=== PATIENT | male | born 1945 | race African-American/Black ===

== ENCOUNTER 2016-06-30 15:10 | Emergency (ER) | payer MEDICAID, OTHER ==
[~2016-06-30] VITALS: Ht 188 cm; Wt 95.3 kg
[~2016-06-30 15:10] MED LIST: IBUP-44 PO
[2016-06-30 15:39] VITALS: BP 162/92
--- NOTE | 2016-06-30 19:01 | NUR ---
PATIENT TO BED 6.
--- NOTE | 2016-06-30 19:37 | NUR ---
71Y/F PATIENT PRESENTS TO ED WITH C/O HEMATURIA X 1 DAY . PT STATES HAVING HEMATURIA X 1 DAY, NO PAIN, HX. OF HTN BUT DID NOT TREAT. DENIES N/V/D; SKIN IS PINK/WARM/DRY; AAOX4 WITH EVEN AND STEADY GAIT; LUNGS CLEAR BL; HR EVEN AND REGULAR; PT DENIES ANY FEVER, CP, SOB, OR COUGH AT THIS TIME; PATIENT STATES PAIN OF 0/10 AT THIS TIME; VSS; PATIENT POSITIONED FOR COMFORT; HOB ELEVATED; BEDRAILS UP X2; BED DOWN. ER MD MADE AWARE OF PT STATUS.
--- NOTE | 2016-06-30 19:38 | NUR ---
Dr. Salmon evaluating patient at bedside.
[2016-06-30] MEDS: cloNIDine 0.1 MG TAB PO ONE (20:04)
[2016-06-30 20:29] LABS: APPEARANCE,URINE SL CLOUDY (CLEAR); BLOOD, URINE 3+ (NEGATIVE); COLOR,URINE BROWN (YELLOW); LEUKOCYTE ESTERASE ,URINE NEGATIVE (NEGATIVE); NITRITE, URINE NEGATIVE (NEGATIVE); PROTEIN,URINE 2+ (NEGATIVE); UGLUCOSE NEGATIVE (NEGATIVE); UROBILINOGEN,URINE 0.2 EU/dL (0.2 - 1)
[2016-06-30 20:31] LABS: BILIRUBIN,URINE NEGATIVE (NEGATIVE)
[2016-06-30 20:32] LABS: BACTERIA,URINE 1+ /HPF (None Seen); MUCUS,URINE 1+ /LPF (None Seen); RBC,URINE TOO NUMEROUS TO COUN /HPF (0-5); SQUAMOUS EPITHELIAL CELL,UR None Seen /LPF (0-3 (FEW)); WBC,URINE 0-3 /HPF (0-5)
--- NOTE | 2016-06-30 20:55 | NUR ---
Patient discharged with v/s stable. Written and verbal after care instructions given and explained. Patient alert, oriented and verbalized understanding of instructions. Ambulatory with steady gait. All questions addressed prior to discharge. ID band removed. Patient advised to follow up with PMD. Rx of LISINOPRIL 10 MG, MOTRIN 800 MG given. Patient educated on indication of medication including possible reaction and side effects. Opportunity to ask questions provided and answered.
[2016-06-30 21:03] VITALS: BP 158/91
== END 2016-06-30 20:55 | disposition home or self-care (01) ==
LOC: MED 15:10
DX: N20.0 Calculus of kidney (principal); I10 Essential (primary) hypertension; Z71.6 Tobacco abuse counseling
CPT/HCPCS: 81001; 87086; 99285

== ENCOUNTER 2018-10-02 19:52 | Emergency (ER) | payer OTHER ==
[~2018-10-02] VITALS: Ht 188 cm; Wt 98.4 kg
[2018-10-02 19:55] VITALS: BP 139/80
--- NOTE | 2018-10-02 19:58 | NUR ---
PT AMBULATED TO BED 11.
--- NOTE | 2018-10-02 20:15 | NUR ---
73/M PRESENTS TO ED WITH DAUGHTER, C/O L TESTICULAR PAIN AND SWELLING, X4 DAYS. L GREATER THAN L TESTICULAR SWELLING NOTED, NO ERYTHEMA OR SORES NOTED. PT REPORTS L TESTICULAR TENDERNESS, DENIES R TESTICULAR TENDERNESS. PT DENIES FEVER OR DYSURIA. PT AWAKE AND ALERT, SKIN NORMAL WARM AND DRY, RR EVEN AND UNLABORED. HX HTN; RX NONCOMPLIANT
[2018-10-02] MEDS: KETOROLAC 60 MG/2 ML VIAL IM ONE (20:44)
[2018-10-02] MEDS: cefTRIAXone 250 MG in LIDOCAINE MPF 1% - 5 mL VIAL 0.9 ML IM ONE (22:05)
[2018-10-02] MEDS: AZITHROMYCIN 250 MG TAB PO ONE (22:05)
[2018-10-02 22:28] VITALS: BP 111/55
--- NOTE | 2018-10-02 22:28 | NUR ---
Patient discharged with v/s stable. Written and verbal after care instructions given and explained. Patient alert, oriented and verbalized understanding of instructions. Ambulatory with steady gait. All questions addressed prior to discharge. ID band removed. Patient advised to follow up with PMD. Rx of MOTRIN, DOXYCYCLINE given. Patient educated on indication of medication including possible reaction and side effects. Opportunity to ask questions provided and answered.
[2018-10-05 06:07] LABS: CHLAMYDIA TRACHOMATIS AMP DNA Negative (Negative)
== END 2018-10-02 22:28 | disposition home or self-care (01) ==
LOC: MED 19:52
DX: N45.2 Orchitis (principal); I10 Essential (primary) hypertension; Z79.899 Other long term (current) drug therapy
CPT/HCPCS: 36415; 76870; 87491; 96372; 99284; J0696; J1885; J2001; Q0092